=== PATIENT | male | born 1955 | race Caucasian/White ===

== ENCOUNTER 2016-05-12 14:54 | Inpatient (IN) | payer MEDICARE, OTHER ==
--- NOTE | ~2016-05-12 | CN ---
Consultation Report [facility] [address] [place]. [address] NAME: SUBHASH ANTONIO : 55 STATUS : ADM IN [facility]#: [id number] AGE: 61 ADM/REG DATE : 05/12/16 MR#: [id number] REPORT SERV DATE: 05/14/16 DICTATED BY: TIFFANIE WELLS DATE: 05/13/16 REPORT STATUS : Draft TRANSCRIBED BY: MODL DATE: 05/13/16 CONSULTATION NOTE. DATE OF CONSULTATION: 05/13/2016 CHIEF COMPLAINT: 1. Urinary retention. 2. BPH with obstruction. HISTORY OF PRESENT ILLNESS: Mr. Antonio is a 61-year-old male with long-standing voiding history. He has nocturia, weak stream, hesitancy, straining with urination. He was in his usual state of health when he was found to be unable to void at all with pain. He presented to the ER. He had confusion and a full bladder. A Anderson catheter was placed draining a liter of fluid from his bladder. He has gotten better since then. I have been asked to consult given his urinary retention. He has a history of prostate cancer. He has the above mentioned history of BPH. PAST MEDICAL HISTORY: Hypertension, hypothyroidism, hyperlipidemia, anxiety, history of neck cancer. PAST SURGICAL HISTORY: Neck exploration. SOCIAL HISTORY: He is with his . He smokes. He rarely drinks. He does not use drugs. ALLERGIES: NO KNOWN DRUG ALLERGIES. MEDICATIONS: Reviewed and listed in the chart. FAMILY HISTORY: Noncontributory. REVIEW OF SYSTEMS: A 12-point review of systems was performed. Pertinent positives are listed in the HPI. PHYSICAL EXAMINATION: VITAL SIGNS: His temperature is 98.7, pulse is in the 60s, blood pressure 138/89, saturating 97% on room air. GENERAL: He is in no acute distress. He appears his stated age. HEENT: Head is normocephalic and atraumatic. LUNGS: Breathing is nonlabored. He is not in respiratory distress. CARDIAC: Pulse is regular in rate and rhythm. ABDOMEN: Soft, nontender, nondistended. NEUROLOGIC: He is alert and oriented x3. GENITOURINARY: He has a Anderson catheter in place. He has normal external genitalia. Urine Consultation Report [place] [id number] [facility] [place]. [address] NAME: SUBHASH ANTONIO : 55 STATUS : ADM IN PAT#: [id number] AGE: 61 ADM/REG DATE : 05/12/16 MR#: [id number] REPORT SERV DATE: 05/14/16 DICTATED BY: TIFFANIE WELLS DATE: 05/13/16 REPORT STATUS : Draft TRANSCRIBED BY: CALEB DATE: 05/13/16 is clear. EXTREMITIES: There is no cyanosis or edema. IMAGING: No pertinent imaging. LABORATORY DATA: White count 7.4, hemoglobin 14.8. Creatinine 0.71. Urinalysis is negative for infection. Imaging none. ASSESSMENT AND PLAN: Mr. Antonio is a 61-year-old male with longstanding BPH with obstruction and he finally went into urinary retention. The exact etiology of this is unknown. Regardless, leaving a Anderson catheter for approximately 1 week, get his catheter out in clinic at that time. At that time, we will check a PSA. I started him on Flomax. If he is able to void and he is asymptomatic, we will leave him alone. If he is unable to void, we will need to do a TRUS ultrasound in order to measure his prostate volume and make appropriate recommendations for prostate surgery. My office will arrange for his followup. Please call if further questions. I have left a script for Flomax in the chart. TOPHER/CALEB Tiffanie Wells MD / [id number] CC: Tiffanie eWlls MD
--- NOTE | ~2016-05-12 | HP ---
History And Physical [place] [address] [place]. [address] NAME: SUBHASH ANTONIO : 55 STATUS : ADM IN [facility]#: [id number] AGE: 61 ADM/REG DATE : 05/12/16 MR#: [id number] REPORT SERV DATE: 05/12/16 DICTATED BY: SANJAY LAFLEUR DATE: 05/12/16 REPORT STATUS : Draft TRANSCRIBED BY: MODL DATE: 05/12/16 DATE OF ADMISSION: 05/12/2016 CHIEF COMPLAINT: Difficulty urinating and episodes of confusion. HISTORY OF PRESENT ILLNESS: Mr. Antonio is a 61-year-old male with a history of hypertension, hypothyroidism, tobacco abuse, who was brought to the emergency room by his secondary to difficulty with urination. History obtained from the patient's as the patient had difficulty staying awake. The patient's states that the symptoms started about three to four months ago. The patient reported difficulty with voiding. The patient states that they did not seek medical attention because they thought symptoms would eventually resolve. However, over the past three to four months, symptoms have gradually worsened. The patient's states that about three weeks ago, symptoms severely worsen with the patient having severe difficulty urinating stating that he would only have dribbling upon using the rest room. The patient's states that today the patient attempted to urinate, but was unable to pass urine at all. It was accompanied with severe bladder distention and severe pain prompting presentation to the emergency room. Upon presentation to the emergency room, preliminary workup noted a sodium of 125 with the patient unable to void, a Anderson catheter was placed with subsequent drainage of over 1 L of urine. Hospitalist Service was therefore consulted to admit the patient for further evaluation. At the time of my evaluation, the patient's reported that the patient has a history of anxiety and was recently placed on Zoloft. The patient's states that he has been on this medication for about three weeks when she noted the patient has significant change in mental status, the patient became more forgetful and also became disoriented. She states that given that this was the last medication that he was placed on prior to current presentation of symptoms, she decided to hold the Zoloft. The patient somewhat improved, states that he became more aware of his surroundings and reports some improvement in his altered mental status. Also at the time of my evaluation, the patient's also corroborated the above story. She denied any fevers or chills or any recent sick contacts. No lightheadedness. No dizziness. No syncopal episodes. No fevers or chills. States that the patient has been compliant with his medication stating that she assists the patient in taking his medications. REVIEW OF SYSTEMS: A 14-point review of system was performed. All systems were negative except as noted in the HPI. PAST MEDICAL HISTORY: 1. Hypertension. 2. Hypothyroidism. 3. Hyperlipidemia. 4. Anxiety. 5. Neck cancer. PAST SURGICAL HISTORY: Neck mass removal. History And Physical [address] [address] NAME: SUBHASH ANTONIO : 55 STATUS : ADM IN [facility]#: [id number] AGE: 61 ADM/REG DATE : 05/12/16 MR#: [id number] REPORT SERV DATE: 05/12/16 DICTATED BY: SANJAY LAFLEUR DATE: 05/12/16 REPORT STATUS : Draft TRANSCRIBED BY: CALEB DATE: 05/12/16 FAMILY HISTORY: Noncontributory. SOCIAL HISTORY: The patient currently , lives at home with his . Positive 45- pack-year smoking history. Reports drinks alcohol socially. Denies any illicit drug use. ALLERGIES: THE PATIENT HAS NO KNOWN DRUG ALLERGIES. PHYSICAL EXAMINATION: VITAL SIGNS: Blood pressure on presentation 196/109, pulse of 72, respirations 16, and O2 saturation 99% on room air. GENERAL: The patient is lying in bed, appears stated age, in no acute distress. HEENT: Normocephalic, atraumatic. Extraocular motors intact. Pupils are round and reactive to light and accommodation. Oral mucosa dry. NECK: Trachea midline and symmetric. No JVD noted. No thyromegaly present. No lymphadenopathy appreciated. CHEST: Nontender to palpation. No scars noted. CARDIOVASCULAR: Regular rate and rhythm. S1, S2. I do not appreciate any murmurs, rubs, or gallops. LUNGS: Clear to auscultation bilaterally. ABDOMEN: Positive bowel sounds. Nontender. Nondistended. EXTREMITIES: No cyanosis, no clubbing, no edema. NEUROLOGIC: The patient was alert and oriented. LABORATORY DATA: WBC 9.8, hemoglobin 13.5, hematocrit 37.9, and platelets 272. Sodium 125, potassium 3.6, chloride 84, bicarb 31, BUN 6, creatinine 0.60, and glucose 135. ASSESSMENT AND PLAN: 1. Hyponatremia, symptomatic etiology unclear, however, high index of suspicion for medication-related etiology in the setting of SSRI use. Plan, we will obtain serum osmolality, will obtain urine sodium, urine creatinine, and potassium. We will start the patient on normal saline at 100 mL per hour for 10 hours. 2. Urinary retention. Etiology likely secondary to benign prostatic hypertrophy. We will start the patient on tamsulosin and finasteride. We will consult Urology for their input. 3. Hypertension, uncontrolled, currently on amlodipine. However, blood pressure likely complicated in the setting of acute pain due to urinary retention. We will restart the patient on his home medication. The patient is started on tamsulosin for benign prostatic hypertrophy control. We will monitor blood pressure and titrate medications as needed. 4. Hypothyroidism. We will continue levothyroxine. 5. Atherosclerotic cardiovascular disease. The patient has an ASCVD score of 28.2% given high score high intensity statin indicated. We will start the patient on atorvastatin 40 mg p.o. daily. 6. Tobacco use. The patient has a 21-fass-jlyq smoking history. We will obtain a screening CT of the chest to rule out any pulmonary etiology or malignant process. 7. Code status. The patient will remain full code. 8. Deep venous thrombosis, subacute heparin. History And Physical [address] [address] NAME: SUBHASH ANTONIO : 55 STATUS : ADM IN [facility]#: [id number] AGE: 61 ADM/REG DATE : 05/12/16 MR#: [id number] REPORT SERV DATE: 05/12/16 DICTATED BY: SANJAY LAFLEUR DATE: 05/12/16 REPORT STATUS : Draft TRANSCRIBED BY: CALEB DATE: 05/12/16 JOANN/CALEB Sanjay Lafleur MD / [id number] CC: Primo Aldana Jr, MD
--- NOTE | ~2016-05-12 | DS ---
Discharge Summary [facility] [address] [place]. [address] NAME: SUBHASH HORTON : 55 STATUS : DIS IN PAT#: [id number] AGE: 61 ADM/REG DATE : 05/12/16 MR#: [id number] REPORT SERV DATE: 05/15/16 DICTATED BY: ALEX VARGHESE DATE: 05/14/16 REPORT STATUS : Draft TRANSCRIBED BY: MODL DATE: 05/14/16 ADMISSION DATE: 05/12/2016 DISCHARGE DATE: 05/14/2016 DISCHARGE DIAGNOSES: 1. Acute urinary retention. 2. Acute hyponatremia. 3. Hypertension, uncontrolled, resolved. 4. Hypothyroidism, most recent TSH 4.530. 5. Tobacco abuse. 6. Hyperlipidemia. 7. History of throat cancer. DISCHARGE MEDICATIONS: Are as follows, amlodipine 5 mg twice a day; Lipitor 20 mg at bedtime; BuSpar 10 mg three times a day; levothyroxine 112 mcg p.o. daily, prescription was written for this; Flomax 0.4 mg daily, prescription was written for that as well. HISTORY OF PRESENT ILLNESS: This is a pleasant 61-year-old white male who presented with difficulty urinating and episodes of confusion. Please see initial H and P of Dr. Harpreet Mathews as the patient was admitted to the Hospitalist service for further evaluation and treatment. Initially, a Anderson catheter was placed with immediate flow of urine up to a liter. Lab work was ordered and followed. He was given IV hydration. PROCEDURES AND IMAGING DURING THIS ADMISSION: Include a CT of the chest showing COPD, no lung masses or infiltrates or adenopathy, some osteopenia with mild chronic compression fractures at T5, T6, and T7. CONSULTANTS DURING THIS ADMISSION: Include Urology, Dr. Wells. HOSPITAL COURSE: I began seeing the patient on 05/13/2016 where he was beginning to feel better, although he did experience some very significant and painful lower abdominal pain, bladder spasms that necessitated use of IV Toradol for pain control and also p.r.n. Levsin. This combination of medicines did improve his symptoms. His lab work showed an improvement as his sodium had climbed to 130. He was counseled extensively on the need to quit smoking, but declined use of nicotine patch and continued to smoke while hospitalized. The patient states that recently his primary care had started him on Zoloft as an outpatient, but he had stopped this approximately six days prior to this admission as he felt like it was causing him some altered mental status. In review of all labs, his TSH was found to be mildly elevated at 4.530, and his Synthroid dosage been increased slightly with instructions to follow up with his primary care, Dr. Gilmar Mckeon, in six weeks for a recheck of his TSH. He will follow up with Urology, Dr. Wells, next week and was felt safe for discharge to home on 05/14/2016 with the above medicines and followup plan. Q and A at bedside. The patient was in agreement with this plan going forward. He will keep his Anderson catheter in place until followup with Urology. Discharge Summary [address] [place]. [address] NAME: SUBHASH HORTON : 55 STATUS : DIS IN PAT#: [id number] AGE: 61 ADM/REG DATE : 05/12/16 MR#: [id number] REPORT SERV DATE: 05/15/16 DICTATED BY: ALEX VARGHESE DATE: 05/14/16 REPORT STATUS : Draft TRANSCRIBED BY: CALEB DATE: 05/14/16 [facility]/CALEB Alex Varghese NP / [id number] CC: Naz Johnson M.D.
[2016-05-12 15:56] LABS: WBC (NOT ORDERED) (RFLEX) 0 (0-5)
[2016-05-12 16:09] LABS: BASOPHILS 0.3 %; BASOPHILS ABSOLUTE 0.03 10/3/uL (0.0-0.16); EOSINOPHILS 0.2 %; EOSINOPHILS ABSOLUTE 0.02 10/3/uL (0.0-0.53); ER CBC TAT 0 Hrs 14 Mins; HEMATOCRIT 37.9 % (40.0-51.0); HEMOGLOBIN 13.5 g/dL (13.6-17.8); IMMATURE GRANULOCYTES 0.2 %; IMMATURE GRANULOCYTES ABSOLUTE 0.02 10/3/uL (0.0-0.11); LYMPHOCYTES 6.9 %; LYMPHOCYTES ABSOLUTE 0.67 10/3/uL (0.67-4.30); MEAN CORPUS HGB CONC 35.6 g/dL (32.0-36.0); MEAN CORPUSCULAR HEMOGLOB 30.5 pg (26.0-34.0); MEAN CORPUSCULAR VOLUME 85.6 fL (80-100); MEAN PLATELET VOLUME 8.4 fL (9.2-13.0); MONOCYTES 8.2 %; NEUTROPHILS 84.2 %; NEUTROPHILS ABSOLUTE 8.22 10/3/uL (2.02-8.40); PLATELET COUNT 272 10/3/uL (150-400); RBC DISTRIBUTION WIDTH 12.6 % (12.0-16.0); RED CELL COUNT 4.43 10/6/uL (4.7-6.1); WHITE BLOOD CELLS 9.8 10/3/uL (4.5-10.5)
[2016-05-12 16:10] LABS: ASCORBIC ACID (UR NOT ORDER) NEG (NEG); BILIRUBIN, URINE NEGATIVE (NEG); ER URINALYSIS TAT 0 Hrs 15 Mins; KETONE, URINE TRACE MG/DL (NEG); LEUKOCYTE ESTERASE(NOT OR NEG (NEG); MANUAL DIFF NO %; NITRITE (URINE) NEG (NEG)
[2016-05-12 16:17] LABS: A/G RATIO 1.2 (0.7-1.9); ALKALINE PHOSPHATASE 90 U/L (45-117); CALCIUM, SERUM 8.6 MG/DL (8.5-10.4); CO2 (CARBON DIOXIDE) 31 MMOL/L (24-34); GFR AFRICAN AMERICAN 126 ML/MIN (>=60); GFR NON AFRICAN AMERICAN 109 ML/MIN (>=60); GLOBULIN 3.2 G/DL (2.5-4.1); POTASSIUM, SERUM 3.6 MMOL/L (3.5-5.3); SGOT(AST) 30 U/L (5-40); SGPT(ALT) 32 U/L (5-65); TOTAL BILIRUBIN 0.5 MG/DL (0-1.2)
[2016-05-12 16:18] LABS: ALBUMIN 3.8 G/DL (3.5-5.0); BUN (BLOOD UREA NITROGEN) 6 MG/DL (6-23); CHLORIDE, SERUM 84 MMOL/L (96-112); GLUCOSE, SERUM 135 MG/DL (60-99); SODIUM, SERUM 125 MMOL/L (135-148)
[2016-05-12] MEDS ORDERED: NORV5 PO (16:58)
[2016-05-12] MEDS ORDERED: BUSPAR10 PO (16:58)
[2016-05-12] MEDS ORDERED: ZOLOFT25 MG PO (16:58)
[2016-05-12] MEDS ORDERED: LIPITOR20 PO (17:02)
[2016-05-12] MEDS ORDERED: LEVOTHYROXIN100 MCG PO (17:02)
[2016-05-12 21:16] LABS: GLYCOHEMOGLOBIN (HbA1c) 5.1 % (4.7-6.1)
[2016-05-12 21:25] LABS: CREATININE, URINE 7.2 MG/DL
[2016-05-13 05:28] LABS: BASOPHILS 0.3 %; BASOPHILS ABSOLUTE 0.02 10/3/uL (0.0-0.16); EOSINOPHILS 0.9 %; EOSINOPHILS ABSOLUTE 0.07 10/3/uL (0.0-0.53); HEMATOCRIT 40.5 % (40.0-51.0); HEMOGLOBIN 14.8 g/dL (13.6-17.8); IMMATURE GRANULOCYTES 0.1 %; IMMATURE GRANULOCYTES ABSOLUTE 0.01 10/3/uL (0.0-0.11); LYMPHOCYTES 13.2 %; LYMPHOCYTES ABSOLUTE 0.98 10/3/uL (0.67-4.30); MEAN CORPUS HGB CONC 36.5 g/dL (32.0-36.0); MEAN CORPUSCULAR HEMOGLOB 31.5 pg (26.0-34.0); MEAN CORPUSCULAR VOLUME 86.2 fL (80-100); MEAN PLATELET VOLUME 8.5 fL (9.2-13.0); MONOCYTES 11.7 %; MONOCYTES ABSOLUTE 0.87 10/3/uL (0.21-1.20); NEUTROPHILS 73.8 %; NEUTROPHILS ABSOLUTE 5.47 10/3/uL (2.02-8.40); PLATELET COUNT 270 10/3/uL (150-400); RBC DISTRIBUTION WIDTH 12.5 % (12.0-16.0); WHITE BLOOD CELLS 7.4 10/3/uL (4.5-10.5)
[2016-05-13 05:30] LABS: MANUAL DIFF NO %
[2016-05-13 05:44] LABS: A/G RATIO 1.1 (0.7-1.9); ALBUMIN 3.5 G/DL (3.5-5.0); ALKALINE PHOSPHATASE 83 U/L (45-117); BUN (BLOOD UREA NITROGEN) 6 MG/DL (6-23); CALCIUM, SERUM 8.4 MG/DL (8.5-10.4); CHOLESTEROL 126 MG/DL (< 200); CREATININE 0.71 MG/DL (0.70-1.30); GFR AFRICAN AMERICAN 117 ML/MIN (>=60); GFR NON AFRICAN AMERICAN 101 ML/MIN (>=60); GLOBULIN 3.2 G/DL (2.5-4.1); GLUCOSE, SERUM 108 MG/DL (60-99); POTASSIUM, SERUM 4.2 MMOL/L (3.5-5.3); SGPT(ALT) 30 U/L (5-65); SODIUM, SERUM 130 MMOL/L (135-148); TOTAL BILIRUBIN 0.7 MG/DL (0-1.2); TOTAL PROTEIN 6.7 G/DL (6.0-8.5)
[2016-05-13 05:47] LABS: CHLORIDE, SERUM 95 MMOL/L (96-112); CHOL/HDL RATIO(NOT ORDER) 2.9 (0-5); CO2 (CARBON DIOXIDE) 26 MMOL/L (24-34); HDL CHOLESTEROL 44 MG/DL (> 39); LDL CHOLESTEROL 66 MG/DL (< 130); NON-HDL CHOLESTEROL 82 MG/DL (< 160); SGOT(AST) 25 U/L (5-40); TRIGLYCERIDE 84 MG/DL (< 150)
[2016-05-14 06:58] LABS: CALCIUM, SERUM 8.5 MG/DL (8.5-10.4); CHLORIDE, SERUM 96 MMOL/L (96-112); CO2 (CARBON DIOXIDE) 26 MMOL/L (24-34); CREATININE 0.87 MG/DL (0.70-1.30); GFR AFRICAN AMERICAN 108 ML/MIN (>=60); GFR NON AFRICAN AMERICAN 93 ML/MIN (>=60); GLUCOSE, SERUM 102 MG/DL (60-99); POTASSIUM, SERUM 3.6 MMOL/L (3.5-5.3); SODIUM, SERUM 131 MMOL/L (135-148)
[2016-05-14 07:02] LABS: BUN (BLOOD UREA NITROGEN) 13 MG/DL (6-23)
[2016-05-14] MEDS ORDERED: SYN112 PO (15:06)
[2016-05-14] MEDS ORDERED: FLOMAX4 PO (15:06)
[2016-09-30] MEDS ORDERED: DSS PO (09:09)
[2016-09-30] MEDS ORDERED: PCET PO (09:18)
[2016-09-30] MEDS ORDERED: LEVAQUIN750 MG PO (09:18)
== END 2016-05-14 15:48 | disposition home or self-care (01) | DRG 726 ==
LOC: ER 14:54 → CDU1 18:42 → ER/OF 19:12 → 6NO 19:22
PROVIDERS: Hospitalist; Nurse Practitioner Family; Physician Assistant
DX: N40.1 Benign prostatic hyperplasia with lower urinary tract symptoms (principal); E87.1 Hypo-osmolality and hyponatremia; N32.89 Other specified disorders of bladder; N13.8 Other obstructive and reflux uropathy; I10 Essential (primary) hypertension; R33.8 Other retention of urine; E03.9 Hypothyroidism, unspecified; F17.210 Nicotine dependence, cigarettes, uncomplicated; E78.5 Hyperlipidemia, unspecified; F41.9 Anxiety disorder, unspecified; F32.9 Major depressive disorder, single episode, unspecified; Z85.46 Personal history of malignant neoplasm of prostate; Z85.21 Personal history of malignant neoplasm of larynx; Z92.3 Personal history of irradiation
CPT/HCPCS: 71250; 80048; 80053; 80061; 81001; 82570; 83036; 83930; 84133; 84300; 84443; 85025; 99284; A9270-GY; J1885